=== PATIENT | female | born 1980 | race Caucasian/White ===

== ENCOUNTER 2016-05-06 11:55 | Emergency (ER) | payer MEDICAID ==
[2016-05-06 12:04] VITALS: BP 145/85
--- NOTE | 2016-05-06 12:21 | ED Physician Documentation ---
PD HPI URI - Stated complaint Stated Complaint: FEVER/COUGH - Chief complaint Chief Complaint: Resp - History obtained from History obtained from: Patient, Family - History of Present Illness Timing - onset: How many days ago (4) Timing duration: Days (4) Timing details: Gradual onset Pain level max: 0 Pain level now: 0 Associated symptoms: Fever (102) Contributing factors: Sick contact (son) Improves by: Rest, MDI/nebulizer (doesn't currently have an inhaler) Worsened by: Activity, Breathing Similar symptoms before: Diagnosis (viral uri with wheezing) Recently seen: Not recently seen Review of Systems Constitutional: reports: Fever Nose: reports: Rhinorrhea / runny nose, Congestion Throat: denies: Sore throat Respiratory: reports: Cough ("milky sputum") GI: denies: Abdominal Pain, Nausea, Vomiting, Diarrhea Skin: denies: Rash Musculoskeletal: denies: Neck pain, Back pain Neurologic: denies: Headache PD PAST MEDICAL HISTORY - Past Medical History Past Medical History: Yes Respiratory: Asthma - Past Surgical History Past Surgical History: No - Present Medications Home Medications: Ambulatory Orders Medication Instructions Recorded Confirmed Albuterol Sulfate [Proventil Hfa 1 - 2 puffs IH Q4H PRN #1 06/20/15 Inhaler] [email or web address] Albuterol Sulf [Ventolin Hfa 2 puffs INH Q4HR PRN #1 inhaler 05/06/16 Inhaler] Benzonatate [Tessalon Perle] 100 mg PO TID PRN #30 capsule 05/06/16 Prednisone 40 mg PO DAILY 5 Days 05/06/16 - Allergies Allergies/Adverse Reactions: Allergies Allergy/AdvReac Type Severity Reaction Status Date / Time No Known Drug Allergies Allergy Verified 07/22/15 12:51 - Social History Does the pt smoke?: No Smoking Status: Never smoker Does the pt drink ETOH?: No Does the pt have substance abuse?: No - Immunizations Immunizations are current?: Yes - POLST Patient has POLST: No PD ED PE NORMAL - Vitals Vital signs reviewed: Yes - General General: Alert and oriented X 3, No acute distress, Well developed/nourished - HEENT HEENT: PERRL, Ears normal, Moist mucous membranes, Pharynx benign - Neck Neck: Supple, no meningeal sign - Cardiac Cardiac: RRR - Respiratory Respiratory: No respiratory distress, Other (Mild wheezing bilaterally with good aeration of the lungs throughout. No rhonchi) - Abdomen Abdomen: Soft, Non tender - Derm Derm: Warm and dry, No rash - Neuro Neuro: Alert and oriented X 3 - Psych Psych: Normal mood, Normal affect Results - Vitals Vitals: Vital Signs - 24 hr 05/06/16 12:02 Temperature 36.8 C Heart Rate 104 H Respiratory 20 Rate Blood Pressure 145/85 H O2 Saturation 99 Oxygen O2 Source Room air PD MEDICAL DECISION MAKING - ED course Complexity details: reviewed old records, considered differential, d/w patient ED course: Patient presents to the emergency department with what appears to be a viral upper respiratory infection. No evidence of pneumonia clinically. No hypoxia. Did offer a breathing treatment here, but she declines this and will take her prescriptions to be filled at the pharmacy. Patient counseled regarding signs and symptoms for which I believe and urgent re-evaluation would be necessary. Patient with good understanding of and agreement to plan and is comfortable going home at this time This document was made in part using voice recognition software. While efforts are made to proofread this document, sound alike and grammatical errors may occur. Departure - Departure Disposition: Home, Self Care Clinical Impression: Upper respiratory infection Qualifiers: URI type: unspecified viral URI Qualified Code(s): J06.9 - Acute upper respiratory infection, unspecified; B97.89 - Other viral agents as the cause of diseases classified elsewhere Condition: Good Instructions: ED URI Viral W Wheezing Follow-Up: your,doctor in 1 week [Other] Prescriptions: Albuterol Sulf [Ventolin Hfa Inhaler] 2 puffs INH Q4HR PRN #1 inhaler PRN Reason: Wheezing Prednisone 40 mg PO DAILY 5 Days Benzonatate [Tessalon Perle] 100 mg PO TID PRN #30 capsule PRN Reason: Cough Comments: Return if you worsen. Use the inhaler as needed. Forms: Activity restrictions
== END 2016-05-06 12:26 | disposition home or self-care (01) ==
LOC: ED 11:55
DX: J06.9 Acute upper respiratory infection, unspecified (principal); B97.89 Other viral agents as the cause of diseases classified elsewhere; J45.909 Unspecified asthma, uncomplicated
CPT/HCPCS: 99282; 99283

== ENCOUNTER 2016-09-06 21:54 | Emergency (ER) | payer MEDICAID ==
--- NOTE | 2016-09-06 23:41 | ED Physician Documentation ---
PD HPI CHEST PAIN - Stated complaint Stated Complaint: CHEST PAIN - Chief complaint Chief Complaint: Cardiac - History obtained from History obtained from: Patient - History of Present Illness Timing - onset: How many hours ago (2-3), Today Timing - onset during: Rest Timing - duration: Hours Timing - details: Gradual onset, Constant, Waxing and waning Pain level now: 4 Quality: Pain Location: Substernal, Left chest Radiation: Back (across upper back) Improved by: Rest Worsened by: Exertion Associated symptoms: Shortness of air, Diaphoresis, Nausea Similar symptoms before: No diagnosis Recently seen: Clinic Review of Systems Constitutional: reports: Sweats. denies: Fever Cardiac: reports: Chest pain / pressure. denies: Palpitations, Calf pain GI: reports: Nausea. 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 Psych: None Musculoskeletal: None Derm: None Other Past Medical History: Gastritis - Past Surgical History Past Surgical History: No - Allergies Allergies/Adverse Reactions: Allergies Allergy/AdvReac Type Severity Reaction Status Date / Time No Known Drug Allergies Allergy Verified 07/22/15 12:51 - Social History Does the pt smoke?: No Smoking Status: Never smoker Does the pt drink ETOH?: No Does the pt have substance abuse?: No - Family History Family history: reports: Other (mother had angina since her mid-thirties) - Immunizations Immunizations are current?: Yes - POLST Patient has POLST: No PD ED PE NORMAL - Vitals Vital signs reviewed: Yes - General General: Alert and oriented X 3, No acute distress, Well developed/nourished - HEENT HEENT: Moist mucous membranes - Neck Neck: Supple, no meningeal sign - Cardiac Cardiac: RRR, No murmur, No gallop, No rub - Respiratory Respiratory: No respiratory distress, Clear bilaterally - Abdomen Abdomen: Soft, Non tender - Derm Derm: Normal color, Warm and dry - Extremities Extremities: No edema - Neuro Neuro: Alert and oriented X 3 Results - Vitals Vitals: Vital Signs - 24 hr 09/07/16 04:58 Heart Rate 64 Respiratory 21 Rate Blood Pressure 111/67 O2 Saturation 99 Oxygen O2 Source Room air - EKG (time done) No standard instances Rate: Rate (enter#) (59) Rhythm: NSR [place]: Normal Intervals: Normal [place] QRS: Normal Ischemia: Normal ST segments - Labs Labs: Laboratory Tests 09/07/16 09/07/16 09/07/16 00:17 00:17 00:17 WBC 12.9 H RBC 4.74 Hgb 13.0 Hct 38.7 MCV 81.7 MCH 27.3 MCHC 33.4 RDW 14.8 Plt Count 330 MPV 7.5 L Neut # 7.0 H Lymph # 5.0 H [place] # 0.7 Eos # 0.2 Baso # 0.0 Absolute Nucleated RBC 0.00 Nucleated RBCs 0.0 D-Dimer Sodium 137 Potassium 3.5 Chloride 107 Carbon Dioxide 23 Anion Gap 7.0 BUN 15 Creatinine 0.7 Estimated GFR (MDRD) 94 Glucose 101 H Calcium 9.0 Troponin I < 0.04 Ur Specific [place] Urine HCG, Qual 09/07/16 09/07/16 00:17 00:17 WBC RBC Hgb Hct MCV MCH MCHC RDW Plt Count MPV Neut # Lymph # [place] # Eos # Baso # Absolute Nucleated RBC Nucleated RBCs D-Dimer < 200.0 L Sodium Potassium Chloride Carbon Dioxide Anion Gap BUN Creatinine Estimated GFR (MDRD) Glucose Calcium Troponin I Ur Specific [place] <=1.005 Urine HCG, Qual NEGATIVE - Rads (name of study) chest xray Radiology: Prelim report reviewed, See rad report CT chest angio Radiology: Prelim report reviewed, See rad report PD MEDICAL DECISION MAKING - ED course Complexity details: reviewed results, re-evaluated patient, considered differential, d/w patient Departure - Departure Disposition: 01 Home, Self Care Clinical Impression: Chest pain Condition: Good Instructions: ED Chest Pain Atypical Unkn Cause Follow-Up: Román Peacock MD [Primary Care Provider] - Forms: Activity restrictions Discharge Date/Time: 09/07/16 05:14
[2016-09-07 00:37] LABS: CREATININE 0.7 mg/dL (0.4-1.0); POTASSIUM 3.5 mmol/L (3.5-5.0)
[2016-09-07 00:38] LABS: BASOPHILS % (AUTO) 0.4 %; EOSINOPHILS # (AUTO) 0.2 10^3/uL (0.0-0.7); EOSINOPHILS % (AUTO) 1.8 %; HCT - HEMATOCRIT 38.7 % (37.0-47.0); LYMPHOCYTES % (AUTO) 38.5 %; MEAN CORPUSCULAR HEMOGLOBIN 27.3 pg (27.0-31.0); MEAN CORPUSCULAR HGB CONC 33.4 g/dL (32.0-36.0); MEAN CORPUSCULAR VOLUME 81.7 fL (81.0-99.0); MEAN PLATELET VOLUME 7.5 fL (7.9-10.8); MONOCYTES # (AUTO) 0.7 10^3/uL (0.0-1.0); MONOCYTES % (AUTO) 5.1 %; NEUTROPHILS % (AUTO) 54.2 %; RED BLOOD COUNT 4.74 10^6/uL (4.20-5.40); RED CELL DISTRIBUTION WIDTH 14.8 % (12.0-15.0); UNCORRECTED WHITE BLOOD COUNT 12.9 x10^3/uL; WHITE BLOOD COUNT 12.9 x10^3/uL (4.8-10.8)
[2016-09-07 00:47] LABS: HCG UR QUAL NEGATIVE
--- NOTE | 2016-09-07 01:19 | XRAY Preliminary Report ---
Exam: XR Chest 2 View PA/LAT IMPRESSION: Normal 2-view chest radiography. [facility] SITE ID: [id number]
--- NOTE | 2016-09-07 01:30 | XRAY Report ---
EXAM: CHEST RADIOGRAPHY EXAM DATE: 09/07/2016 01:11 AM. CLINICAL HISTORY: Chest pain. COMPARISON: 07/22/2015. TECHNIQUE: 2 views. FINDINGS: Lungs/Pleura: No focal opacities evident. No pleural effusion. No pneumothorax. Normal volumes. Mediastinum: Heart and mediastinal contours are unremarkable. Other: None. IMPRESSION: Normal 2-view chest radiography. [facility] Referring Provider Line: [phone] SITE ID: [id number]
[2016-09-07] MEDS ORDERED: IOPAMIDOL-300 100 ML VIAL IVP ONE (03:11)
--- NOTE | 2016-09-07 03:44 | CT Preliminary Report ---
Exam: CT Chest Angio (AORTA) IMPRESSION: Normal chest CT angiogram. No aneurysm or dissection. No pulmonary embolism. Clear lungs. [facility] SITE ID: [id number]
--- NOTE | 2016-09-07 03:47 | CT Report ---
EXAM: CT ANGIOGRAM CHEST EXAM DATE: 09/07/2016 03:16 AM. CLINICAL HISTORY: Chest pain between the shoulder blades since tonight. COMPARISON: None. TECHNIQUE: Routine helical imaging was performed through the chest in the arterial phase. IV contrast : 100 mL Isovue 300.. Reconstructions: Coronal, sagittal, and 3D MIP reconstructions of the aorta. FINDINGS: Vascular Structures: Normal. No aneurysm, dissection, or significant atherosclerotic disease of the t horacic aorta. The visualized pulmonary arteries are within normal limits. Lungs/Pleura: No consolidation, nodules, or edema. No effusions or pneumothorax. Mediastinum: Normal. No cardiac enlargement or adenopathy. Upper Abdomen: Unremarkable. Other: None. IMPRESSION: Normal chest CT angiogram. No aneurysm or dissection. No pulmonary embolism. Clear lungs. [facility] Referring Provider Line: [phone] SITE ID: [id number]
[2016-09-07 05:14] VITALS: BP 111/67
== END 2016-09-07 05:14 | disposition home or self-care (01) ==
LOC: ED 21:54
DX: R07.9 Chest pain, unspecified (principal); R06.02 Shortness of breath; J45.909 Unspecified asthma, uncomplicated; K21.9 Gastro-esophageal reflux disease without esophagitis
CPT/HCPCS: 36415; 71020; 71275; 80048; 81025; 84484; 85025; 85379; 93005; 99284; Q9967

== ENCOUNTER 2017-10-30 20:01 | Emergency (ER) | payer MEDICAID ==
[2017-10-30 20:12] VITALS: BP 145/92
[2017-10-30 20:34] LABS: BILIRUBIN,URINE NEGATIVE (NEGATIVE); GLUCOSE, URINE (UA) NEGATIVE (NEGATIVE); KETONES,URINE (UA) TRACE mg/dL (NEGATIVE); LEUKOCYTE ESTERASE, URINE SMALL (NEGATIVE); NITRITE,URINE POSITIVE (NEGATIVE); OCCULT BLOOD,URINE LARGE (NEGATIVE); PROTEIN,URINE >=300 mg/dL (NEGATIVE); UROBILINOGEN,URINE 2 E.U./dL (NORMAL)
[2017-10-30] MEDS ORDERED: PHENAZOPYRIDINE 100 MG TABLET PO STA (20:40)
[2017-10-30] MEDS ORDERED: NITROFURANTOIN MACRO 100 MG CAPSULE PO STA (20:40)
--- NOTE | 2017-10-30 20:42 | ED Physician Documentation ---
PD HPI FEMALE - Stated complaint Stated Complaint: FEMALE - Chief complaint Chief Complaint: UTI - History obtained from History obtained from: Patient - History of Present Illness Timing - onset: How many days ago (3) Timing - duration: Days (3) Timing - details: Gradual onset Pain level max: 7 Pain level max: 7 Associated symptoms: Dysuria, Urinary frequency, Hematuria Similar symptoms before: Diagnosis (UTI) Recently seen: Not recently seen Review of Systems Constitutional: denies: Fever, Chills Cardiac: denies: Chest pain / pressure Respiratory: denies: Cough GI: denies: Vomiting, Diarrhea Skin: denies: Rash Musculoskeletal: denies: Neck pain, Back pain Neurologic: denies: Headache PD PAST MEDICAL HISTORY - Past Medical History Respiratory: Asthma Endocrine/Autoimmune: None GI: GERD, 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 Psych: None Musculoskeletal: None Derm: None - Past Surgical History Past Surgical History: No - Present Medications Home Medications: Ambulatory Orders Medication Instructions Recorded Confirmed Nitrofurantoin Monohyd/M-Cryst 100 mg PO BID #10 capsule 10/30/17 [Macrobid 100 mg Capsule] Phenazopyridine HCl [Pyridium] 200 mg PO TID PRN #6 tablet 10/30/17 - Allergies Allergies/Adverse Reactions: Allergies Allergy/AdvReac Type Severity Reaction Status Date / Time No Known Drug Allergies Allergy Verified 10/30/17 20:12 - Social History Does the pt smoke?: No Smoking Status: Never smoker Does the pt drink ETOH?: No Does the pt have substance abuse?: No - Immunizations Immunizations are current?: Yes - POLST Patient has POLST: No PD ED PE NORMAL - Vitals Vital signs reviewed: Yes - General General: Alert and oriented X 3, No acute distress - HEENT HEENT: Moist mucous membranes - Cardiac Cardiac: RRR - Respiratory Respiratory: No respiratory distress, Clear bilaterally - Abdomen Abdomen: Soft, Non tender, Non distended - Back Back: No CVA TTP - Derm Derm: Warm and dry - Neuro Neuro: Alert and oriented X 3 Results - Vitals Vitals: Vital Signs - 24 hr 10/30/17 20:09 Temperature 37.2 C Heart Rate 70 Respiratory 16 Rate Blood Pressure 145/92 H O2 Saturation 100 Oxygen O2 Source Room air - Labs Labs: Laboratory Tests 10/30/17 20:15 Urine Color DARK YELLOW Urine Clarity CLOUDY Urine pH 6.0 Ur Specific [place] >=1.030 H Urine Protein >=300 H Urine Glucose (UA) NEGATIVE Urine Ketones TRACE Urine Occult Blood LARGE H Urine Nitrite POSITIVE H Urine Bilirubin NEGATIVE Urine Urobilinogen 2 H Ur Leukocyte Esterase SMALL H Urine RBC TNTC H Urine WBC 6-10 H Ur Squamous Epith Cells RARE Squamous Urine Bacteria Rare Ur Microscopic Review INDICATED Urine Culture Comments INDICATED PD MEDICAL DECISION MAKING - ED course Complexity details: considered differential, d/w patient ED course: Patient is a 37-year-old female with a UTI. Will place on antibiotics and follow-up with her PCP as needed. She is well-appearing, nontoxic. Afebrile. Patient counseled regarding signs and symptoms for which I believe and urgent re -evaluation would be necessary. Patient with good understanding of and agreement to plan and is comfortable going home at this time This document was made in part using voice recognition software. While efforts are made to proofread this document, sound alike and grammatical errors may occur. - Sepsis Event Vital Signs: Vital Signs - 24 hr 10/30/17 20:09 Temperature 37.2 C Heart Rate 70 Respiratory 16 Rate Blood Pressure 145/92 H O2 Saturation 100 Oxygen O2 Source Room air Departure - Departure Disposition: 01 Home, Self Care Clinical Impression: Urinary tract infection Qualifiers: Urinary tract infection type: acute cystitis Hematuria presence: with hematuria Qualified Code(s): N30.01 - Acute cystitis with hematuria Condition: Good Instructions: ED UTI Cystitis Female Follow-Up: your,doctor as needed [Other] Prescriptions: Nitrofurantoin Monohyd/M-Cryst [Macrobid 100 mg Capsule] 100 mg PO BID #10 capsule Phenazopyridine HCl [Pyridium] 200 mg PO TID PRN #6 tablet PRN Reason: dysuria Comments: Take all antibiotics until gone. Return if you worsen. Discharge Date/Time: 10/30/17 20:54
[2017-10-30 21:01] LABS: BACTERIA,URINE Rare /HPF (None Seen); CLARITY,URINE CLOUDY (CLEAR); RBC,URINE TNTC /HPF (0-5); SQUAMOUS EPITHELIAL CELL,UR RARE Squamous (<= Few)
== END 2017-10-30 20:54 | disposition home or self-care (01) ==
LOC: ED 20:01
DX: N30.01 Acute cystitis with hematuria (principal)
CPT/HCPCS: 81001; 87086; 99283; A9270; 81003

== ENCOUNTER 2018-05-09 13:19 | Emergency (ER) | payer MEDICAID ==
[2018-05-09 14:52] VITALS: BP 150/116
--- NOTE | 2018-05-09 15:20 | ED Physician Documentation ---
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 Psych: None Musculoskeletal: None Derm: None - Past Surgical History Past Surgical History: No - Present Medications Home Medications: Ambulatory Orders Medication Instructions Recorded Confirmed No Known Home Medications 05/09/18 05/09/18 - Allergies Allergies/Adverse Reactions: Allergies Allergy/AdvReac Type Severity Reaction Status Date / Time No Known Drug Allergies Allergy Verified 05/09/18 13:30 - Social History Does the pt smoke?: No Smoking Status: Never smoker Does the pt drink ETOH?: No Does the pt have substance abuse?: No - Immunizations Immunizations are current?: Yes - POLST Patient has POLST: No Results - Vitals Vitals: Vital Signs - 24 hr 05/09/18 05/09/18 13:28 13:30 Temperature 36.6 C Heart Rate 67 86 Respiratory 18 18 Rate Blood Pressure 150/85 H 150/116 H O2 Saturation 99 99 Oxygen O2 Source Room air - Labs Labs: Laboratory Tests 05/09/18 05/09/18 05/09/18 15:35 15:35 15:35 WBC 11.0 H RBC 4.43 Hgb 12.2 Hct 37.1 MCV 83.8 MCH 27.6 MCHC 32.9 RDW 15.0 Plt Count 352 MPV 7.2 L Neut # (Auto) 7.0 H Lymph # (Auto) 3.5 [place] # (Auto) 0.5 Eos # (Auto) 0.1 Baso # (Auto) 0.0 Absolute Nucleated RBC 0.00 Nucleated RBC % 0.0 Sodium 135 Potassium 3.7 Chloride 102 Carbon Dioxide 22 Anion Gap 11.0 BUN 11 Creatinine 0.5 Estimated GFR (MDRD) 137 Glucose 90 Calcium 9.1 Magnesium 1.7 Total Bilirubin 0.8 AST 23 ALT 26 Alkaline Phosphatase 91 B-Natriuretic Peptide 27 Total Protein 7.8 Albumin 4.1 Globulin 3.7 Albumin/Globulin Ratio 1.1 Lipase 25
[2018-05-09 15:48] LABS: BASOPHILS % (AUTO) 0.4 %; EOSINOPHILS # (AUTO) 0.1 10^3/uL (0.0-0.7); HGB - HEMOGLOBIN 12.2 g/dL (12.0-16.0); LYMPHOCYTES # (AUTO) 3.5 10^3/uL (1.5-3.5); LYMPHOCYTES % (AUTO) 31.3 %; MEAN CORPUSCULAR HEMOGLOBIN 27.6 pg (27.0-31.0); MEAN CORPUSCULAR HGB CONC 32.9 g/dL (32.0-36.0); MEAN CORPUSCULAR VOLUME 83.8 fL (81.0-99.0); MEAN PLATELET VOLUME 7.2 fL (7.9-10.8); MONOCYTES # (AUTO) 0.5 10^3/uL (0.0-1.0); MONOCYTES % (AUTO) 4.3 %; PLT - PLATELET COUNT 352 10^3/uL (130-450); RED BLOOD COUNT 4.43 10^6/uL (4.20-5.40)
[2018-05-09 15:57] LABS: ALBUMIN 4.1 g/dL (3.2-5.5); ALBUMIN/GLOBULIN RATIO 1.1 (1.0-2.2); BILIRUBIN,TOTAL 0.8 mg/dL (0.2-1.0); CALCIUM 9.1 mg/dL (8.5-10.3); CREATININE 0.5 mg/dL (0.4-1.0); MAGNESIUM 1.7 mg/dL (1.7-2.8); TOTAL PROTEIN 7.8 g/dL (6.7-8.2)
--- NOTE | 2018-05-09 16:18 | ED Physician Documentation ---
PD HPI DYSPNEA - Stated complaint Stated Complaint: BP CHECK - Chief complaint Chief Complaint: General - History obtained from History obtained from: Patient - History of Present Illness Timing - onset: How many days ago (several days of feeling hands and feet were swollen, and hands sweaty at times. Possibly lips feeling swollen today. 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 No new meds nor foods.) Timing - onset during: Light activity Timing - details: Gradual onset (2-3 days) Inciting event(s): No: URI, Allergic rxn/anaphylaxis, Immobilization/travel Associated symptoms: Bilateral edema (mild swelling of feet, not really ankles). No: Fever, Cough, Hemoptysis, Wheezing Similar symptoms before: Has not had sx before Recently seen: Not recently seen Review of Systems Constitutional: denies: Fever, Chills, Myalgias Nose: denies: Rhinorrhea / runny nose, Congestion Throat: denies: Sore throat Cardiac: denies: Chest pain / pressure, Palpitations Respiratory: denies: Dyspnea, Cough GI: denies: Nausea, Vomiting, Diarrhea, Bloody / black stool Skin: denies: Rash, Lesions Musculoskeletal: reports: Extremity swelling Neurologic: denies: Focal weakness, Numbness, Near syncope PD PAST MEDICAL HISTORY - Past Medical History Cardiovascular: None Respiratory: Asthma Endocrine/Autoimmune: None GI: GERD, 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 Psych: None Musculoskeletal: None Derm: None - Past Surgical History Past Surgical History: No - Present Medications Home Medications: Ambulatory Orders Medication Instructions Recorded Confirmed hydroCHLOROthiazide 25 mg PO DAILY #10 tablet 05/09/18 [Hydrochlorothiazide] - Allergies Allergies/Adverse Reactions: Allergies Allergy/AdvReac Type Severity Reaction Status Date / Time No Known Drug Allergies Allergy Verified 05/09/18 13:30 - Social History Does the pt smoke?: No Smoking Status: Never smoker Does the pt drink ETOH?: No Does the pt have substance abuse?: No - Immunizations Immunizations are current?: Yes - POLST Patient has POLST: No PD ED PE NORMAL - Vitals Vital signs reviewed: Yes - General General: Alert and oriented X 3, No acute distress, Well developed/nourished - HEENT HEENT: Ears normal, Pharynx benign, Other (lips do not appear swollen) - Neck Neck: Supple, no meningeal sign, No adenopathy, No JVD - Cardiac Cardiac: RRR, No murmur - Respiratory Respiratory: Clear bilaterally - Abdomen Abdomen: Soft, Non tender - Derm Derm: Normal color, Warm and dry - Extremities Extremities: No tenderness to palpate, Normal ROM s pain, No calf tenderness / cord, Other (1+ edema in feet and ankles, not really lower legs. Hands with mild edema. Palms sweaty. ) - Neuro Neuro: Alert and oriented X 3, No motor deficit, Normal speech Results - Vitals Vitals: Oxygen O2 Source Room air - Labs Labs: Laboratory Tests 05/09/18 05/09/18 05/09/18 15:35 15:35 15:35 WBC 11.0 H RBC 4.43 Hgb 12.2 Hct 37.1 MCV 83.8 MCH 27.6 MCHC 32.9 RDW 15.0 Plt Count 352 MPV 7.2 L Neut # (Auto) 7.0 H Lymph # (Auto) 3.5 [place] # (Auto) 0.5 Eos # (Auto) 0.1 Baso # (Auto) 0.0 Absolute Nucleated RBC 0.00 Nucleated RBC % 0.0 Sodium 135 Potassium 3.7 Chloride 102 Carbon Dioxide 22 Anion Gap 11.0 BUN 11 Creatinine 0.5 Estimated GFR (MDRD) 137 Glucose 90 Calcium 9.1 Magnesium 1.7 Total Bilirubin 0.8 AST 23 ALT 26 Alkaline Phosphatase 91 B-Natriuretic Peptide 27 Total Protein 7.8 Albumin 4.1 Globulin 3.7 Albumin/Globulin Ratio 1.1 Lipase 25 PD MEDICAL DECISION MAKING - ED course Complexity details: considered differential (consider fluid retention and will check renal function, lytes, sugar for diabetes, and BNP for signs of heart strain. Also consider allergy with the lips swelling too. Not on SHAJI inhibitor nor NSAIDs. ), d/w patient Departure - Departure Disposition: Home, Self Care Clinical Impression: High blood pressure Qualifiers: Hypertension type: unspecified secondary hypertension Qualified Code(s): I15.9 - Secondary hypertension, unspecified Edema Qualifiers: Edema type: unspecified Qualified Code(s): R60.9 - Edema, unspecified Condition: Stable Record reviewed to determine appropriate education?: Yes Instructions: ED Edema Legs Bilateral Prescriptions: hydroCHLOROthiazide [Hydrochlorothiazide] 25 mg PO DAILY #10 tablet Comments: I would see how your blood pressure does over the next week or 2 and see if it is consistently elevated. If so you might need to be on a blood pressure medicine. For the next several days or week we could have you take a mild diuretic to help with the edema. Your electrolytes and kidney function and blood sugar are good so is no obvious cause for the swelling of your hands and legs. It could potentially be an allergic reaction. Recheck if it is consistent increase. Discharge Date/Time: 05/09/18 16:40
== END 2018-05-09 16:40 | disposition home or self-care (01) ==
LOC: ED 13:19
DX: I15.9 Secondary hypertension, unspecified (principal); R60.0 Localized edema
CPT/HCPCS: 36415; 80053; 83690; 83735; 83880; 85025; 93005; 99283

== ENCOUNTER 2019-01-18 11:58 | Emergency (ER) | payer MEDICAID ==
[2019-01-18 12:07] VITALS: BP 143/96
[2019-01-18 12:22] LABS: BILIRUBIN,URINE NEGATIVE (NEGATIVE); CLARITY,URINE SL. CLOUDY (CLEAR); GLUCOSE, URINE (UA) NEGATIVE (NEGATIVE); KETONES,URINE (UA) NEGATIVE (NEGATIVE); LEUKOCYTE ESTERASE, URINE SMALL (NEGATIVE); NITRITE,URINE NEGATIVE (NEGATIVE); OCCULT BLOOD,URINE MODERATE (NEGATIVE); PH,URINE 7.5 PH (5.0-7.5); PROTEIN,URINE NEGATIVE (NEGATIVE); UROBILINOGEN,URINE 0.2 (NORMAL) E.U./dL (NORMAL)
[2019-01-18 12:23] LABS: HCG UR QUAL NEGATIVE
[2019-01-18 12:32] LABS: BACTERIA,URINE Few /HPF (None Seen); SQUAMOUS EPITHELIAL CELL,UR FEW Squamous (<= Few); WBC CLUMPS,URINE PRESENT
[2019-01-18] MEDS ORDERED: SULFAMETH/TRIMETH DS 800/160 MG TABLET PO STA (13:45)
[2019-01-18] MEDS ORDERED: PHENAZOPYRIDINE 100 MG TABLET PO STA (13:45)
--- NOTE | 2019-01-18 13:47 | ED Physician Documentation ---
PD HPI BACK PAIN - Stated complaint Stated Complaint: FEMALE - Chief complaint Chief Complaint: UTI - History obtained from History obtained from: Patient (Previously healthy 38-year-old woman with 1 week of urinary burning frequency and dysuria. She did have some flank pain the other day which is now gone. No fevers or chills. 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 Psych: None Musculoskeletal: None Derm: None - Past Surgical History Past Surgical History: No - Present Medications Home Medications: Ambulatory Orders Medication Instructions Recorded Confirmed hydroCHLOROthiazide 25 mg PO DAILY #10 tablet 05/09/18 [Hydrochlorothiazide] Sulfamethoxazole/Trimethoprim 1 each PO BID 7 Days #14 tablet 01/18/19 [Sulfamethoxazole-Tmp Ds Tablet] - Allergies Allergies/Adverse Reactions: Allergies Allergy/AdvReac Type Severity Reaction Status Date / Time No Known Drug Allergies Allergy Verified 05/09/18 13:30 - Social History Does the pt smoke?: No Smoking Status: Never smoker Does the pt drink ETOH?: No Does the pt have substance abuse?: No - Immunizations Immunizations are current?: Yes - POLST Patient has POLST: No PD ED PE NORMAL - Vitals Vital signs reviewed: Yes - General General: Alert and oriented X 3, No acute distress - Abdomen Abdomen: Normal bowel sounds, Soft, Non tender - Back Back: No CVA TTP, No spinal TTP - Derm Derm: Normal color, Warm and dry - Extremities Extremities: No edema, No calf tenderness / cord Results - Vitals Vitals: Vital Signs - 24 hr 01/18/19 12:04 Temperature 36.7 C Heart Rate 64 Respiratory 18 Rate Blood Pressure 143/96 H O2 Saturation 100 Oxygen O2 Source Room air - Labs Labs: Laboratory Tests 01/18/19 12:10 Urine Color YELLOW Urine Clarity [place]. CLOUDY Urine pH 7.5 Ur Specific [place] 1.015 Urine Protein NEGATIVE Urine Glucose (UA) NEGATIVE Urine Ketones NEGATIVE Urine Occult Blood MODERATE H Urine Nitrite NEGATIVE Urine Bilirubin NEGATIVE Urine Urobilinogen 0.2 (NORMAL) Ur Leukocyte Esterase SMALL H Urine RBC 11-25 H Urine WBC >25 H Urine WBC Clumps PRESENT Ur Squamous Epith Cells FEW Squamous Urine Bacteria Few Ur Microscopic Review INDICATED Urine Culture Comments INDICATED Urine HCG, Qual NEGATIVE Departure - Departure Disposition: 01 Home, Self Care Clinical Impression: Cystitis Condition: Good Record reviewed to determine appropriate education?: Yes Instructions: ED UTI Cystitis Female Prescriptions: Sulfamethoxazole/Trimethoprim [Sulfamethoxazole-Tmp Ds Tablet] 1 each PO BID 7 Days #14 tablet Comments: We will culture your urine, the results should be done in 48-72 hours. If an antibiotic change is necessary we will call you. Return if worse in the meantime, especially if you develop increasing flank pain, fevers, or cannot keep down the medication. Your blood pressure was elevated today on check into the emergency department. This does not mean that you have hypertension, it is a common phenomenon to come to the emergency department and have elevated blood pressure. I recommend that you see your primary care physician within the week to have it rechecked when you are feeling better.
== END 2019-01-18 14:14 | disposition home or self-care (01) ==
LOC: ED 11:58
DX: N30.90 Cystitis, unspecified without hematuria (principal); R03.0 Elevated blood-pressure reading, without diagnosis of hypertension
CPT/HCPCS: 81001; 81025; 87086; 99283; A9270; 81003

== ENCOUNTER 2019-08-03 18:40 | Emergency (ER) | payer MEDICAID ==
[2019-08-03 18:45] VITALS: BP 139/85
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
== END 2019-08-03 19:15 | disposition home or self-care (01) ==
LOC: ED 18:40
DX: S60.571A Other superficial bite of hand of right hand, initial encounter (principal); W50.3XXA Accidental bite by another person, initial encounter
CPT/HCPCS: 99281; 99283

== ENCOUNTER 2020-07-29 20:56 | Emergency (ER) | payer MEDICAID ==
[2020-07-29 21:25] LABS: BASOPHILS # (AUTO) 0.1 10^3/uL (0.0-0.1); BASOPHILS % (AUTO) 0.4 %; EOSINOPHILS # (AUTO) 0.2 10^3/uL (0.0-0.7); EOSINOPHILS % (AUTO) 1.2 %; HCT - HEMATOCRIT 36.3 % (37.0-47.0); HGB - HEMOGLOBIN 11.9 g/dL (12.0-16.0); LYMPHOCYTES # (AUTO) 4.4 10^3/uL (1.5-3.5); LYMPHOCYTES % (AUTO) 33.2 %; MEAN CORPUSCULAR HEMOGLOBIN 27.5 pg (27.0-31.0); MEAN CORPUSCULAR HGB CONC 32.8 g/dL (32.0-36.0); MEAN PLATELET VOLUME 9.1 fL (7.9-10.8); MONOCYTES # (AUTO) 0.7 10^3/uL (0.0-1.0); MONOCYTES % (AUTO) 5.2 %; NEUTROPHILS % (AUTO) 59.6 %; PLT - PLATELET COUNT 365 10^3/uL (130-450); RED BLOOD COUNT 4.32 10^6/uL (4.20-5.40); RED CELL DISTRIBUTION WIDTH 14.1 % (12.0-15.0); WHITE BLOOD COUNT 13.4 x10^3/uL (4.8-10.8)
[2020-07-29 21:36] LABS: ALBUMIN/GLOBULIN RATIO 1.1 (1.0-2.2); BILIRUBIN,TOTAL 0.7 mg/dL (0.2-1.0); CALCIUM 9.1 mg/dL (8.5-10.3); CREATININE 0.6 mg/dL (0.4-1.0); POTASSIUM 3.4 mmol/L (3.5-5.0); TOTAL PROTEIN 7.5 g/dL (6.7-8.2)
--- NOTE | 2020-07-29 21:36 | XRAY Report ---
PROCEDURE: Chest 1 View X-Ray INDICATIONS: Chest pain TECHNIQUE: One view of the chest was acquired. COMPARISON: 09/07/2016 CT angiogram of the chest FINDINGS: Surgical changes and devices: None. Lungs and pleura: No pleural effusions or pneumothorax. Lungs are clear. Mediastinum: Mediastinal contours appear normal. Heart size is normal. Bones and chest wall: No suspicious bony lesions. Overlying soft tissues appear unremarkable. IMPRESSION: Normal exam. Reviewed by: Castillo Howard MD on 07/29/2020 9:35 PM PDT Approved by: Castillo Howard MD on 07/29/2020 9:35 PM PDT Station ID: [id number]
--- NOTE | 2020-07-29 21:42 | ED Physician Documentation ---
PD HPI CHEST PAIN - Stated complaint Stated Complaint: CP,LT ARM PX - Chief complaint Chief Complaint: Cardiac - History obtained from History obtained from: Patient - History of Present Illness Timing - onset: Enter time (18:30), Today Timing - onset during: Rest Timing - details: Abrupt onset Pain level max: 4 Pain level now: 0 Quality: Pain Location: Left chest Radiation: Left upper extremity Improved by: Nothing Worsened by: Other (no exacerbating factors) Associated symptoms: No: Shortness of air, Diaphoresis, Nausea, Vomiting Similar symptoms before: Has not had sx before Recently seen: Not recently seen Review of Systems Constitutional: reports: Reviewed and negative Cardiac: reports: Chest pain / pressure. 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 Psych: None Musculoskeletal: None Derm: None - Past Surgical History Past Surgical History: No - Present Medications Home Medications: Ambulatory Orders Medication Instructions Recorded Confirmed No Known Home Medications 08/03/19 08/03/19 - Allergies Allergies/Adverse Reactions: Allergies Allergy/AdvReac Type Severity Reaction Status Date / Time No Known Drug Allergies Allergy Verified 07/29/20 21:05 - Social History Does the pt smoke?: No Smoking Status: Never smoker Does the pt drink ETOH?: No Does the pt have substance abuse?: No - Immunizations Immunizations are current?: Yes Immunizations: TDAP current <10years - POLST Patient has POLST: No PD ED PE NORMAL - Vitals Vital signs reviewed: Yes - General General: Alert and oriented X 3, No acute distress, Well developed/nourished - Cardiac Cardiac: RRR, No murmur, No gallop, No rub - Respiratory Respiratory: No respiratory distress, Clear bilaterally - Abdomen Abdomen: Soft, Non tender - Derm Derm: Normal color, Warm and dry - Extremities Extremities: No edema Results - Vitals Vitals: Oxygen O2 Source Room air - EKG (time done) No standard instances Rate: Rate (enter#) (54) Rhythm: NSR Beecher: Normal Intervals: Normal OR QRS: Normal Ischemia: Normal ST segments - Labs Labs: Laboratory Tests 06/04/21 06/04/21 06/04/21 21:15 21:15 21:15 WBC 13.4 H RBC 4.32 Hgb 11.9 L Hct 36.3 L MCV 84.0 MCH 27.5 MCHC 32.8 RDW 14.1 Plt Count 365 MPV 9.1 Neut # (Auto) 8.0 H Lymph # (Auto) 4.4 H [place] # (Auto) 0.7 Eos # (Auto) 0.2 Baso # (Auto) 0.1 Absolute Nucleated RBC 0.00 Nucleated RBC % 0.0 Sodium 138 Potassium 3.4 L Chloride 101 Carbon Dioxide 24 Anion Gap 13.0 BUN 9 Creatinine 0.6 Estimated GFR (MDRD) 110 Glucose 101 H Calcium 9.1 Total Bilirubin 0.7 AST 21 ALT 21 Alkaline Phosphatase 105 Troponin I High Sens 3.2 Total Protein 7.5 Albumin 4.0 Globulin 3.5 Albumin/Globulin Ratio 1.1 Lipase 18 L - Rads (name of study) chest xray Radiology: Prelim report reviewed, See rad report PD MEDICAL DECISION MAKING - ED course Complexity details: reviewed results, re-evaluated patient, considered differential, d/w patient Departure - Departure Disposition: 01 Home, Self Care Clinical Impression: Chest pain Qualifiers: Chest pain type: unspecified Qualified Code(s): R07.9 - Chest pain, unspecified Instructions: ED Chest Pain Atypical Unkn Cause Comments: Follow up with your primary care provider; call when the office is next open to arrange for next available appointment. Your tests tonight are reassuring but you might need further testing even if symptoms do not return. Discharge Date/Time: 07/29/20 22:14
[2020-07-29 22:02] VITALS: BP 124/77
== END 2020-07-29 22:14 | disposition home or self-care (01) ==
LOC: ED 20:56
DX: R07.9 Chest pain, unspecified (principal); M79.602 Pain in left arm
CPT/HCPCS: 36415; 80053; 83690; 84484; 85025; 93005; 99284

== ENCOUNTER 2020-11-27 19:46 | Emergency (ER) | payer MEDICAID ==
--- NOTE | 2020-11-27 20:05 | ED Physician Documentation ---
PD HPI CHEST PAIN - Stated complaint Stated Complaint: CP,SHOULDER & BACK PX,SOA,COUGH - Chief complaint Chief Complaint: Cardiac - History obtained from History obtained from: Patient - History of Present Illness Timing - onset: How many days ago (4) Timing - onset during: Rest Timing - duration: Days (4) Timing - details: Gradual onset, Still present, Waxing and waning Pain level max: 7 Pain level now: 5 Quality: Pressure, Sharp, Pain Location: Substernal, Left chest Radiation: Left upper extremity Improved by: Nothing Worsened by: Other (nothing) Associated symptoms: Shortness of air, Palpitations, Cough. No: Diaphoresis, Nausea, Vomiting, Feeling faint / dizzy, General Weakness Similar symptoms before: Diagnosis (atypical chest pain) Recently seen: Not recently seen - Additional information Additional information: Previously well 40-year-old female who has had a prior history of episodic chest pain she has been evaluated a number of times here in the emergency department without findings. She has been evaluated at [facility] with a stress test and an echocardiogram for low heart rate and this was also found normal studies. 4 days ago the patient reports she was sitting at her desk when she developed a headache she thought she was dehydrated she drank extra fluids she eventually developed some pain in her chest elevated blood pressure was noted blood pressure got better with hydration and she is also noted some palpitations within the last 4 days. She denies any nausea or vomiting diaphoresis or syncope. She states the symptoms are somewhat different than what she has had previously. 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 She denies any congestion or sore throat. Review of Systems Constitutional: reports: Fatigue. denies: Fever, Chills, Myalgias Eyes: denies: Decreased vision Ears: denies: Ear pain Nose: denies: Rhinorrhea / runny nose, Congestion Throat: denies: Sore throat Cardiac: reports: Chest pain / pressure, Palpitations. denies: Pedal edema, Calf pain Respiratory: reports: Dyspnea, Cough. 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 Psych: None Musculoskeletal: None Derm: None - Past Surgical History Past Surgical History: No - Present Medications Home Medications: Ambulatory Orders Medication Instructions Recorded Confirmed No Known Home Medications 08/03/19 08/03/19 - Allergies Allergies/Adverse Reactions: Allergies Allergy/AdvReac Type Severity Reaction Status Date / Time No Known Drug Allergies Allergy Verified 11/27/20 19:50 - Social History Does the pt smoke?: No Smoking Status: Never smoker Does the pt drink ETOH?: No Does the pt have substance abuse?: No - Immunizations Immunizations are current?: Yes Immunizations: TDAP current <10years - POLST Patient has POLST: No PD ED PE NORMAL - Vitals Vital signs reviewed: Yes (hypertensive, mild ) - General General: Alert and oriented X 3, No acute distress, Well developed/nourished - HEENT HEENT: Atraumatic, PERRL, EOMI - Neck Neck: Supple, no meningeal sign, No bony TTP - Cardiac Cardiac: RRR, No murmur - Respiratory Respiratory: No respiratory distress, Clear bilaterally - Abdomen Abdomen: Normal bowel sounds, Soft, Non tender, Non distended, No organomegaly - Back Back: No CVA TTP, No spinal TTP - Derm Derm: Normal color, Warm and dry, No rash - Extremities Extremities: No deformity, No edema - Neuro Neuro: Alert and oriented X 3, technical inspector 2-12 intact, No motor deficit, No sensory deficit, Normal speech Eye Opening: Spontaneous Motor: Obeys Commands Verbal: Oriented GCS Score: 15 - Psych Psych: Normal mood, Normal affect Results - Vitals Vitals: Vital Signs - 24 hr 11/27/20 11/27/20 11/27/20 19:50 21:53 22:45 Temperature 36.8 C 36.8 C Heart Rate 75 68 63 Respiratory 18 17 16 Rate Blood Pressure 149/95 H 126/77 145/74 H O2 Saturation 98 99 99 Oxygen O2 Source Room air - EKG (time done) 1953 Rate: Rate (enter#) (59) Rhythm: NSR Ischemia: Normal ST segments Compare to prior EKG: Unchanged from prior EKG (SPT 6- no changes ) Computer interpretation: Agree with computer - Labs Labs: Laboratory Tests 11/27/20 11/27/20 11/27/20 20:37 20:37 20:37 WBC 13.0 H RBC 4.47 Hgb 12.4 Hct 38.4 MCV 85.9 MCH 27.7 MCHC 32.3 RDW 13.8 Plt Count 361 MPV 9.1 Neut # (Auto) 7.3 H Lymph # (Auto) 4.6 H Porter # (Auto) 0.8 Eos # (Auto) 0.2 Baso # (Auto) 0.1 Absolute Nucleated RBC 0.00 Nucleated RBC % 0.0 D-Dimer 207.5 Sodium 135 Potassium 3.7 Chloride 105 Carbon Dioxide 23 Anion Gap 7.0 BUN 11 Creatinine 0.6 Estimated GFR (MDRD) 110 Glucose 98 Calcium 8.8 Total Bilirubin 0.4 AST 16 ALT 16 Alkaline Phosphatase 93 Troponin I High Sens Total Protein 7.6 Albumin 3.9 Globulin 3.7 Albumin/Globulin Ratio 1.1 Lipase 23 Urine Color Urine Clarity Urine pH Ur Specific [place] Urine Protein Urine Glucose (UA) Urine Ketones Urine Occult Blood Urine Nitrite Urine Bilirubin Urine Urobilinogen Ur Leukocyte Esterase Ur Microscopic Review Urine Culture Comments Urine HCG, Qual 11/27/20 11/27/20 20:37 20:45 WBC RBC Hgb Hct MCV MCH MCHC RDW Plt Count MPV Neut # (Auto) Lymph # (Auto) Porter # (Auto) Eos # (Auto) Baso # (Auto) Absolute Nucleated RBC Nucleated RBC % D-Dimer Sodium Potassium Chloride Carbon Dioxide Anion Gap BUN Creatinine Estimated GFR (MDRD) Glucose Calcium Total Bilirubin AST ALT Alkaline Phosphatase Troponin I High Sens < 2.3 L Total Protein Albumin Globulin Albumin/Globulin Ratio Lipase Urine Color YELLOW Urine Clarity CLEAR Urine pH 6.5 Ur Specific [place] 1.010 Urine Protein NEGATIVE Urine Glucose (UA) NEGATIVE Urine Ketones NEGATIVE Urine Occult Blood TRACE-INTA Urine Nitrite NEGATIVE Urine Bilirubin NEGATIVE Urine Urobilinogen 0.2 (NORMAL) Ur Leukocyte Esterase NEGATIVE Ur Microscopic Review NOT INDICATED Urine Culture Comments NOT INDICATED Urine HCG, Qual NEGATIVE - Rads (name of study) chest Radiology: Prelim report reviewed (Impression: No acute pulmonary process.), EMP read indepedently, See rad report Procedures - IVC sono (time) 2019 Bedside IVC sono: IVC measures (cm) (1.77), Euvolemia PD MEDICAL DECISION MAKING - ED course Complexity details: reviewed old records, reviewed results, re-evaluated patient, considered differential, d/w patient ED course: 40-year-old female reports 4 days of intermittent chest pain and dyspnea on arrival to the emergency department she continues have 5 out of 10 chest pain and this is not improved with use of a GI cocktail. She does have pain to the rhomboid muscles posteriorly and some tenderness there as well and this is associated with a complex of symptoms she is having. For this reason we have administered dexamethasone and Toradol for musculoskeletal pain. She has improvement in her symptoms with treatment. Departure - Departure Disposition: 01 Home, Self Care Clinical Impression: Rhomboid muscle pain Condition: Stable Instructions: ED Chest Pain NonCardiac Follow-Up: [facility] [Provider Group] Discharge Date/Time: 11/27/20 22:46
[2020-11-27] MEDS ORDERED: LIDOCAINE VISCOUS 2% 15 ML UDC MM STA (20:26)
[2020-11-27] MEDS ORDERED: MAG HYDROX/AL HYDROX/SIMETH 30 ML UDC PO STA (20:26)
[2020-11-27 20:39] LABS: BASOPHILS # (AUTO) 0.1 10^3/uL (0.0-0.1); BASOPHILS % (AUTO) 0.4 %; EOSINOPHILS # (AUTO) 0.2 10^3/uL (0.0-0.7); EOSINOPHILS % (AUTO) 1.6 %; HCT - HEMATOCRIT 38.4 % (37.0-47.0); HGB - HEMOGLOBIN 12.4 g/dL (12.0-16.0); LYMPHOCYTES # (AUTO) 4.6 10^3/uL (1.5-3.5); LYMPHOCYTES % (AUTO) 35.5 %; MEAN CORPUSCULAR HEMOGLOBIN 27.7 pg (27.0-31.0); MEAN CORPUSCULAR HGB CONC 32.3 g/dL (32.0-36.0); MEAN CORPUSCULAR VOLUME 85.9 fL (81.0-99.0); MEAN PLATELET VOLUME 9.1 fL (7.9-10.8); MONOCYTES # (AUTO) 0.8 10^3/uL (0.0-1.0); MONOCYTES % (AUTO) 5.9 %; NEUTROPHILS # (AUTO) 7.3 10^3/uL (1.5-6.6); NEUTROPHILS % (AUTO) 56.2 %; PLT - PLATELET COUNT 361 10^3/uL (130-450); RED BLOOD COUNT 4.47 10^6/uL (4.20-5.40); RED CELL DISTRIBUTION WIDTH 13.8 % (12.0-15.0)
[2020-11-27] MEDS ORDERED: KETOROLAC 30 MG/ML VIAL IVP STA (20:44)
[2020-11-27] MEDS ORDERED: DEXAMETHASONE 10 MG/ML VIAL IVP STA (20:45)
[2020-11-27 20:53] LABS: ALBUMIN 3.9 g/dL (3.2-5.5); ALBUMIN/GLOBULIN RATIO 1.1 (1.0-2.2); BILIRUBIN,TOTAL 0.4 mg/dL (0.2-1.0); CALCIUM 8.8 mg/dL (8.5-10.3); CREATININE 0.6 mg/dL (0.4-1.0); POTASSIUM 3.7 mmol/L (3.5-5.0); TOTAL PROTEIN 7.6 g/dL (6.7-8.2)
[2020-11-27 20:54] LABS: BILIRUBIN,URINE NEGATIVE (NEGATIVE); GLUCOSE, URINE (UA) NEGATIVE (NEGATIVE); KETONES,URINE (UA) NEGATIVE (NEGATIVE); LEUKOCYTE ESTERASE, URINE NEGATIVE (NEGATIVE); NITRITE,URINE NEGATIVE (NEGATIVE); OCCULT BLOOD,URINE TRACE-INTA (NEGATIVE); PH,URINE 6.5 PH (5.0-7.5); PROTEIN,URINE NEGATIVE (NEGATIVE); UROBILINOGEN,URINE 0.2 (NORMAL) E.U./dL (NORMAL)
[2020-11-27 20:55] LABS: CLARITY,URINE CLEAR (CLEAR); HCG UR QUAL NEGATIVE
--- NOTE | 2020-11-27 21:05 | XRAY Report ---
PROCEDURE: Chest 1 View X-Ray INDICATIONS: chest pain TECHNIQUE: One view of the chest was acquired. COMPARISON: Chest x-ray 07/29/2020 FINDINGS: Surgical changes and devices: None. Lungs and pleura: No pleural effusions or pneumothorax. Lungs are clear. Mediastinum: Mediastinal contours appear normal. Heart size is normal. Bones and chest wall: No suspicious bony lesions. Overlying soft tissues appear unremarkable. IMPRESSION: No acute pulmonary process. Reviewed by: Natty Bowens MD on 11/27/2020 9:04 PM PDT Approved by: Natty Bowens MD on 11/27/2020 9:04 PM PDT Station ID: [id number]
[2020-11-27 22:46] VITALS: BP 145/74
== END 2020-11-27 22:46 | disposition home or self-care (01) ==
LOC: ED 19:46
DX: M79.18 Myalgia, other site (principal); R07.9 Chest pain, unspecified; R06.02 Shortness of breath; R00.2 Palpitations
CPT/HCPCS: 36415; 71045; 80053; 81003; 81025; 83690; 84484; 85025; 85379; 93005; 96374; 96375; 99283; 99284; A9270; 81001; 87086

== ENCOUNTER 2020-12-07 00:45 | Emergency (ER) | payer MEDICAID ==
[2020-12-07 01:03] VITALS: BP 151/90
[2020-12-07] MEDS ORDERED: oxyCODONE/ACET 5/325 Prepack 4 PO STA (01:09)
--- NOTE | 2020-12-07 01:53 | ED Physician Documentation ---
History of Present Illness - Stated complaint Stated Complaint: MOUTH/TOOTH PX - Chief complaint Chief Complaint: Heent - History obtained from History obtained from: Patient - Additonal information Additional information: 40yF presents with aphthous ulcer to R upper gumline that is 10/10 painful, gradual onset, a/w dental caries. patient has appointment with dental in the morning but is in severe pain, unrelieved with ice packs and OTC meds. no difficulty with secretions, opening/closing jaw, swallowing. 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 Psych: None Musculoskeletal: None Derm: None - Past Surgical History Past Surgical History: No - Present Medications Home Medications: Ambulatory Orders Medication Instructions Recorded Confirmed No Known Home Medications 08/03/19 08/03/19 - Allergies Allergies/Adverse Reactions: Allergies Allergy/AdvReac Type Severity Reaction Status Date / Time No Known Drug Allergies Allergy Verified 12/07/20 01:02 - Social History Does the pt smoke?: No Smoking Status: Never smoker Does the pt drink ETOH?: No Does the pt have substance abuse?: No - Immunizations Immunizations are current?: Yes Immunizations: TDAP current <10years - POLST Patient has POLST: No PD ED PE NORMAL - Vitals Vital signs reviewed: Yes - General General: Alert and oriented X 3, Well developed/nourished, Other (tearful) - HEENT HEENT: Atraumatic, PERRL, EOMI, Moist mucous membranes, Pharynx benign, Other (poor dentition. aphthous ulcer to R upper gumline) Results - Vitals Vitals: Vital Signs - 24 hr 12/07/20 00:59 Temperature 36.2 C L Heart Rate 68 Respiratory 18 Rate Blood Pressure 151/90 H O2 Saturation 98 Oxygen O2 Source Room air Procedures - Regional nerve block Nerve block site: Supraperiosteal Right / left: Right Nerve block anesthesia: Lidocaine 1% Nerve block aftercare: Patient tolerated well, No complications PD MEDICAL DECISION MAKING - ED course ED course: 40yF p/w aphthous ulcer to R upper gumline. Lidocaine injection administered and pain meds provided. patient will f/u with dental today. return precautions given. Departure - Departure Disposition: 01 Home, Self Care Clinical Impression: Pain due to dental caries, Aphthous ulcer Condition: Good Instructions: ED Lissette Reid Comments: You were seen in the emergency department for a mouth ulcer. We gave you pain medication and a lidocaine shot in the mouth to numb it. Please return to the emergency department immediately if you have any new or worsening symptoms or other concerns. Follow-up for your dentist appointment in the morning. Discharge Date/Time: 12/07/20 02:07
== END 2020-12-07 02:07 | disposition home or self-care (01) ==
LOC: ED 00:45
DX: K12.0 Recurrent oral aphthae (principal); K02.9 Dental caries, unspecified; K08.89 Other specified disorders of teeth and supporting structures
CPT/HCPCS: 64400

== ENCOUNTER 2021-07-27 16:34 | Emergency (ER) | payer MEDICAID ==
--- NOTE | 2021-07-27 20:23 | ED Physician Documentation ---
PD HPI URI - Stated complaint Stated Complaint: COUGH,HEADACHE,NAUSEA - Chief complaint Chief Complaint: Resp - History obtained from History obtained from: Patient - History of Present Illness Timing - onset: Today, How many days ago (10) Timing duration: Days (10) Timing details: Gradual onset Pain level max: 0 Pain level now: 0 Associated symptoms: Nasal congestion, Rhinorrhea, Dry cough. No: Fever, Chills, Sore throat, Hemoptysis, Chest pain, Dyspnea Contributing factors: Sick contact Improves by: Rest Worsened by: Activity - Additional information Additional information: 41-year-old female's been sick for the past 10 days. She states she started to get better and then got worse again. Entire family is sick at home with same. No fevers. Does have a headache, rhinorrhea and cough. No neck pain. She has had all of her COVID vaccinations. Nothing makes it better or worse. 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 Psych: None Musculoskeletal: None Derm: None - Past Surgical History Past Surgical History: No - Present Medications Home Medications: Ambulatory Orders Medication Instructions Recorded Confirmed No Known Home Medications 08/03/19 08/03/19 - Allergies Allergies/Adverse Reactions: Allergies Allergy/AdvReac Type Severity Reaction Status Date / Time No Known Drug Allergies Allergy Verified 07/27/21 16:59 - Social History Does the pt smoke?: No Smoking Status: Never smoker Does the pt drink ETOH?: No Does the pt have substance abuse?: No - Immunizations Immunizations are current?: Yes Immunizations: TDAP current <10years - POLST Patient has POLST: No PD ED PE NORMAL - Vitals Vital signs reviewed: Yes - General General: Alert and oriented X 3, No acute distress - HEENT HEENT: PERRL, Ears normal, Moist mucous membranes, Pharynx benign - Neck Neck: Supple, no meningeal sign - Cardiac Cardiac: RRR, No murmur, Strong equal pulses - Respiratory Respiratory: No respiratory distress, Clear bilaterally - Abdomen Abdomen: Soft, Non tender, Non distended - Derm Derm: Warm and dry - Neuro Neuro: Alert and oriented X 3 - Psych Psych: Normal mood, Normal affect Results - Vitals Vitals: Vital Signs - 24 hr 07/27/21 07/27/21 16:56 20:42 Temperature 36.4 C L 37.1 C Heart Rate 90 72 Respiratory 14 17 Rate Blood Pressure 135/87 H 142/102 H O2 Saturation 99 100 Oxygen O2 Source Room air PD MEDICAL DECISION MAKING - ED course Complexity details: considered differential, d/w patient ED course: Patient is well-appearing, nontoxic. Afebrile. Likely has COVID as the rest of her family currently is ill with COVID as well. She is vaccinated. No hypoxia or respiratory distress. Declines any medication for home. We will continue supportive care and have her follow-up with her doctor. Lungs are clear to auscultation bilaterally. No indication for x-ray. Patient counseled regarding signs and symptoms for which I believe and urgent re-evaluation would be necessary. Patient with good understanding of and agreement to plan and is comfortable going home at this time This document was made in part using voice recognition software. While efforts are made to proofread this document, sound alike and grammatical errors may occur. Departure - Departure Disposition: 01 Home, Self Care Clinical Impression: URI (upper respiratory infection) Qualifiers: URI type: unspecified URI Qualified Code(s): J06.9 - Acute upper respiratory infection, unspecified Condition: Good Instructions: ED Viral Syndrome Follow-Up: your,doctor as needed [Other] Comments: Drink plenty of fluids and rest. Return if you worsen. You can use Motrin, Tylenol or Aleve as needed for pain at home. Isolation precautions for COVID Day 0 is your first day of symptoms or a positive viral test. Day 1 is the first full day after your symptoms developed or your test specimen was collected. If you have COVID-19 or have symptoms, isolate for at least 5 days. IF YOU: Tested positive for COVID-19 or have symptoms, regardless of vaccination status Stay home for at least 5 days Stay home for 5 days and isolate from others in your home. Wear a well-fitting mask if you must be around others in your home. Do not travel. Ending isolation if you had symptoms End isolation after 5 full days if you are fever-free for 24 hours (without the use of fever-reducing medication) and your symptoms are improving. Ending isolation if you did NOT have symptoms End isolation after at least 5 full days after your positive test. If you got very sick from COVID-19 or have a weakened immune system You should isolate for at least 10 days. Consult your doctor before ending isolation. Take precautions until day 10 Wear a well-fitting mask Wear a well-fitting mask for 10 full days any time you are around others inside your home or in public. Do not go to places where you are unable to wear a mask. Do not travel Do not travel until a full 10 days after your symptoms started or the date your positive test was taken if you had no symptoms. Avoid being around people who are more likely to get very sick from COVID-19. Discharge Date/Time: 07/27/21 20:45
[2021-07-27 20:43] VITALS: BP 142/102
== END 2021-07-27 20:45 | disposition home or self-care (01) ==
LOC: ED 16:34
DX: J06.9 Acute upper respiratory infection, unspecified (principal)
CPT/HCPCS: 99281; 99282

== ENCOUNTER 2021-11-16 17:28 | Emergency (ER) | payer MEDICAID ==
[2021-11-16 17:41] VITALS: BP 145/83
--- NOTE | 2021-11-16 18:26 | ED Physician Documentation ---
PD HPI LOWER EXT INJURY - Stated complaint Stated Complaint: R FOOT INJ - Chief complaint Chief Complaint: Ext Problem - History obtained from History obtained from: Patient - Additional information Additional information: Coming down some stairs about 5 days ago and her foot went into a divot in the asphalt and she had an inversion injury with a pop. She is barely able to walk or bear weight. No other injuries. Declines pain medication, has been taking Tylenol and ibuprofen. 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 Psych: None Musculoskeletal: None Derm: None - Past Surgical History Past Surgical History: No - Present Medications Home Medications: Ambulatory Orders Medication Instructions Recorded Confirmed No Known Home Medications 08/03/19 08/03/19 - Allergies Allergies/Adverse Reactions: Allergies Allergy/AdvReac Type Severity Reaction Status Date / Time No Known Drug Allergies Allergy Verified 11/16/21 17:41 - Social History Does the pt smoke?: No Smoking Status: Never smoker Does the pt drink ETOH?: No Does the pt have substance abuse?: No - Immunizations Immunizations are current?: Yes Immunizations: TDAP current <10years - POLST Patient has POLST: No PD ED PE NORMAL - Vitals Vital signs reviewed: Yes - General General: Alert and oriented X 3, No acute distress - Extremities Extremities: Other (Significant tenderness and bruising overlying the lateral malleolus. No proximal fibular tenderness or foot tenderness. Achilles and calcaneus are nontender.) - Neuro Neuro: Alert and oriented X 3, Normal speech Results - Vitals Vitals: Vital Signs - 24 hr 11/16/21 17:38 Temperature 36.4 C L Heart Rate 70 Respiratory 16 Rate Blood Pressure 145/83 H O2 Saturation 99 Oxygen O2 Source Room air - Rads (name of study) R ankle 3v Radiology: EMP read contemporaneously (formal read, negative. On review I wonder with there is a v v small chip frx and tip of distal fibula.) PD MEDICAL DECISION MAKING - ED course ED course: XR read as neg but I think there may be a chip frx at distal end of fibula. Can be tx as bad sprain though with WBAT, boot. Departure - Departure Disposition: 01 Home, Self Care Clinical Impression: Right ankle sprain Condition: Good Record reviewed to determine appropriate education?: Yes Instructions: ED Sprain Ankle Follow-Up: [facility]opedic [facility] [Provider Group] - Within 1 week Comments: I believe there is a very minor fracture at the very tip of your distal fibula on x-ray. Keep it elevated, I think it is fine to walk in the boot as tolerated. Follow-up with orthopedics in a week, call tomorrow or Saturday for an appointment. Continue Tylenol and/or ibuprofen as needed for pain. Discharge Date/Time: 11/16/21 18:41
--- NOTE | 2021-11-16 19:45 | XRAY Report ---
PROCEDURE: Ankle 3 View RT INDICATIONS: Trauma TECHNIQUE: 3 views of the ankle were acquired. COMPARISON: None FINDINGS: Bones: No fractures or dislocations. Ankle mortise is normally aligned. No suspicious bony lesions . Soft tissues: No tibiotalar joint effusion. Achilles tendon appears normal. Soft tissue swelling i s present about the ankle. IMPRESSION: No acute osseous abnormality. If symptoms persist, follow-up radiographs and/or CT may b e helpful for further evaluation. Reviewed by: Itz Turcios MD on 11/16/2021 7:44 PM PDT Approved by: Itz Turcios MD on 11/16/2021 7:44 PM PDT Station ID: [id number]
== END 2021-11-16 18:41 | disposition home or self-care (01) ==
LOC: ED 17:28
DX: S93.401A Sprain of unspecified ligament of right ankle, initial encounter (principal); X50.1XXA Overexertion from prolonged static or awkward postures, initial encounter
CPT/HCPCS: 99283

== ENCOUNTER 2022-03-08 08:00 | Outpatient (CLI) | payer OTHER, MEDICAID ==
[2022-03-09 06:09] LABS: HBsAG SCREEN Negative (Negative); HEPATITIS B SURFACE AB QUANT 7.9 mIU/mL (Immunity>9.9)
[2022-03-09 07:09] LABS: HCV AB <0.1 s/co ratio (0.0-0.9)
[2022-03-10 00:08] LABS: HIV SCREEN 4TH GENERATION Non Reactive (Non Reactive)
== END 2022-03-08 23:59 | disposition home or self-care (01) ==
LOC: LAB.N 08:00
PROVIDERS: ATTEND Nurse Practitioner
DX: T14.8XXA Other injury of unspecified body region, initial encounter (principal)
CPT/HCPCS: 36415; 86317; 86803; 87340; 87389

== ENCOUNTER 2023-05-06 18:52 | Emergency (ER) | payer MEDICAID ==
[2023-05-06 19:32] LABS: RAPID STREP SCREEN Negative (Negative)
--- NOTE | 2023-05-06 19:32 | ED Physician Documentation ---
PD HPI URI - Stated complaint Stated Complaint: SORE THROAT - Chief complaint Chief Complaint: Heent - History obtained from History obtained from: Patient - History of Present Illness Timing - onset: How many days ago (2 1/2) Timing duration: Days Timing details: Abrupt onset, Still present Associated symptoms: Fever, Chills, Sore throat, Swollen nodes. 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 Psych: None Musculoskeletal: None Derm: None - Past Surgical History Past Surgical History: No - Present Medications Home Medications: Ambulatory Orders Medication Instructions Recorded Confirmed HYDROcod/ACETAM 5/325 [[place] 5/325] 1 ea PO Q6H PRN #12 tablet 05/06/23 Penicillin V Potassium 1,000 mg PO BID 7 Days #28 tablet 05/06/23 dexAMETHasone [Decadron] 4 mg PO DAILY #5 tablet 05/06/23 - Allergies Allergies/Adverse Reactions: Allergies Allergy/AdvReac Type Severity Reaction Status Date / Time No Known Drug Allergies Allergy Verified 05/06/23 19:06 - Social History Does the pt smoke?: No Smoking Status: Never smoker Does the pt drink ETOH?: No Does the pt have substance abuse?: No - Immunizations Immunizations are current?: Yes Immunizations: TDAP current <10years - POLST Patient has POLST: No PD ED PE NORMAL - Vitals Vital signs reviewed: Yes - General General: Alert and oriented X 3, Well developed/nourished, Other (winces in pain with swallowing. ) - HEENT HEENT: No: Pharynx benign (red and swollen tonsils left more than right, with exudate. No peritonsillar swelling. ) - Neck Neck: Supple, no meningeal sign, Other (anterior adenopathy with tenderness. ) - Cardiac Cardiac: RRR, No murmur - Respiratory Respiratory: Clear bilaterally - Abdomen Abdomen: Soft, Non tender - Derm Derm: Normal color, Warm and dry Results - Vitals Vitals: Oxygen O2 Source Room air - Labs Labs: Microbiology 05/06/23 19:10 Group A Strep Throat Culture - Final Throat MIXED OROPHARYNGEAL MICHAEL PRESENT. NO BETA STREP PRESENT IN CULTURE. Laboratory Tests 05/06/23 19:10 Group A Strep Rapid Negative PD Medical Decision Making - ED course Complexity details: considered differential (fairly isolated throat symptoms without general URI, with tonsillar swelling and exudate, adenopathy, reported fevers. High suspicon for bacterial cause despite neg rapid test. Pending culture. ), d/w patient Departure - Departure Disposition: Home, Self Care Clinical Impression: Acute pharyngitis Condition: Stable Record reviewed to determine appropriate education?: Yes Instructions: ED Strep Pharyngitis Poss Prescriptions: dexAMETHasone [Decadron] 4 mg PO DAILY #5 tablet HYDROcod/ACETAM 5/325 [[place] 5/325] 1 ea PO Q6H PRN #12 tablet PRN Reason: Pain Penicillin V Potassium 1,000 mg PO BID 7 Days #28 tablet Comments: Your rapid strep test is negative. However clinically this looks fairly suspicious for being a bacterial cause such as strep. The accuracy of the rapid test is about 85 to 90% so we typically will culture all the negative rec. Strep test is to pickle pumper on the rest. In the interim, I would treat this as if bacterial with penicillin twice daily for the next week. Additionally for the swelling and pain, regardless of bacterial or viral, I would treat with Decadron steroid daily for the next several days. Use Tylenol 500 to 650 mg 4 times daily regularly and add hydrocodone/acetaminophen if needed for worse pains. I sent prescriptions to [facility] pharmacy. The culture should result in a couple of days. If positive then you will continue finishing out the antibiotics. If it is negative then it would presumptively have been viral and hopefully would be improving anyway at that point but you would not have to continue on the antibiotics if the culture is negative. I am prescribing a short course of narcotic pain medication for you. These are potentially dangerous and addictive medications that should be used carefully. These medications may constipate you. Take an [id number] stool softener such as docusate twice daily with plenty of water while taking these medications. If you go 24 hours without a bowel movement, take [id number] MiraLAX, per package instructions. Do not drink or drive while taking these medications. If you received narcotic or sedating medications while in the emergency department do not drive for 24 hours. Store this medication in a safe, secure place and out of reach of children. It is a violation of federal law to give or sell this medication to another person or to use in a manner other than prescribed. The ED will not refill narcotic prescriptions, including prescriptions lost or stolen. You can dispose of unwanted medications at the [facility]'s office or at several pharmacies such as [facility]. Forms: PCP List Discharge Date/Time: 05/06/23 20:10
[2023-05-06] MEDS: HYDROcod/ACETAM 5/325 MG TABLET PO STA (20:04)
[2023-05-06] MEDS: dexAMETHasone 4 MG TABLET PO STA (20:04)
[2023-05-06] MEDS: PENICILLIN VK 250 MG TABLET PO STA (20:04)
[2023-05-06 20:18] VITALS: BP 135/88; O2SAT 99
== END 2023-05-06 20:10 | disposition home or self-care (01) ==
LOC: ED 18:52
DX: J02.9 Acute pharyngitis, unspecified (principal); J45.909 Unspecified asthma, uncomplicated
CPT/HCPCS: 87070; 87430; 99283; A9270; J8540

== ENCOUNTER 2023-08-22 19:52 | Emergency (ER) | payer MEDICAID ==
[2023-08-22 20:18] VITALS: BP 149/83; O2SAT 100
--- NOTE | 2023-08-22 20:23 | ED Physician Documentation ---
PD HPI BACK PAIN - Stated complaint Stated Complaint: BACK PX - Chief complaint Chief Complaint: Back Pain - History obtained from History obtained from: Patient - Additional information Additional information: She was standing in line at [facility] about an hour ago when she developed a sudden severe pain in the middle of her back. Since then it has been coming and going, sharp pain and it is associate with some nausea. There is no injury. 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 : None HEENT: None Psych: None Musculoskeletal: None Derm: None - Past Surgical History Past Surgical History: No - Present Medications Home Medications: Ambulatory Orders Medication Instructions Recorded Confirmed No Known Home Medications 08/22/23 08/22/23 - Allergies Allergies/Adverse Reactions: Allergies Allergy/AdvReac Type Severity Reaction Status Date / Time No Known Drug Allergies Allergy Verified 08/22/23 20:11 - Social History Does the pt smoke?: No Smoking Status: Never smoker Does the pt drink ETOH?: No Does the pt have substance abuse?: No - Immunizations Immunizations are current?: Yes Immunizations: TDAP current <10years - POLST Patient has POLST: No PD ED PE NORMAL - Vitals Vital signs reviewed: Yes - General General: Alert and oriented X 3, No acute distress - HEENT HEENT: PERRL, EOMI - Neck Neck: Supple, no meningeal sign, No bony TTP - Cardiac Cardiac: RRR, No murmur - Respiratory Respiratory: No respiratory distress, Clear bilaterally - Abdomen Abdomen: Non tender - Back Back: No spinal TTP, Other (I am able to reproduce pain with palpation of the left parathoracic muscles. There is no shingles rash in the area.) - Extremities Extremities: No edema, No calf tenderness / cord - Neuro Neuro: Alert and oriented X 3 Results - Vitals Vitals: Vital Signs - 24 hr 08/22/23 08/22/23 08/22/23 20:04 20:11 20:15 Temperature 36.6 C Heart Rate 77 Respiratory 20 16 16 Rate Blood Pressure 149/83 H O2 Saturation 100 Oxygen O2 Source Room air - EKG (time done) 8 EKG releavant findings:: EKG personally interpreted by author of this note. Relevant findings are: Rate: Rate (enter#) (65) Rhythm: NSR [place]: Normal Intervals: Normal [place] QRS: Normal Ischemia: Normal ST segments - Rads (name of study) 2 view chest x-ray is unremarkable. Relevant Findings:: Final report received, EMP independent interpretation of test PD Medical Decision Making - ED course ED course: 43-year-old woman with upper back pain seemingly musculoskeletal given that it is reproducible. Chest x-ray and EKG were unremarkable. Very much doubt dissection. She is PERC negative.Will obtain chest radiography and EKG and trial muscle relaxer/zofran. She was feeling better after the above but only wanting the nausea medicine to go home declining any other pain medication. Departure - Departure Disposition: Home, Self Care Clinical Impression: Back pain Qualifiers: Back pain location: thoracic back pain Chronicity: acute Back pain laterality: midline Qualified Code(s): M54.6 - Pain in thoracic spine Condition: Good Record reviewed to determine appropriate education?: Yes Instructions: ED Neck Back Pain General Comments: Chest x-ray and EKG were normal/negative so very much doubt it is a serious/internal cause. Ibuprofen as needed for the pain. Return for new or worsening symptoms. Follow-up with your primary care physician, next available appointment.
[2023-08-22] MEDS: CYCLOBENZAPRINE 10 MG TABLET PO STA (20:43)
[2023-08-22] MEDS: ONDANSETRON ODT 4 MG TABLET TL STA (20:43)
--- NOTE | 2023-08-22 21:05 | XRAY Report ---
PROCEDURE: Chest 2V INDICATIONS: back pn TECHNIQUE: 2 views of the chest were acquired. COMPARISON: 11/27/2020. FINDINGS: Surgical changes and devices: None. Lungs and pleura: No pleural effusions or pneumothorax. Lungs are clear. Mediastinum: Mediastinal contours appear normal. Heart size is normal. Bones and chest wall: No suspicious bony lesions. Overlying soft tissues appear unremarkable. IMPRESSION: No acute cardiopulmonary process. Reviewed by: Santos Chaves MD on 08/22/2023 9:04 PM PDT Approved by: Santos Chaves MD on 08/22/2023 9:04 PM PDT Station ID: [id number]
[2023-08-22] MEDS: ONDANSETRON ODT 4 MG Prepack 2 TL STA (21:46)
== END 2023-08-22 21:51 | disposition home or self-care (01) ==
LOC: ED 19:52
DX: M54.6 Pain in thoracic spine (principal); J45.909 Unspecified asthma, uncomplicated
CPT/HCPCS: 71046; 93005; 99283; A9270; Q0162